=== PATIENT | female | born 1940 | race Caucasian/White ===

== ENCOUNTER → 2016-11-16 | Outpatient (CLI) | payer MEDICARE, BC ==
[~2016-11-16] MED LIST: ADVAIR 250/5028 PUFF IN; AMLO5TAB PO; CARAFATE 1GM TAB1 GM PO; CHEWABLE ASPIRI81 MG PO; DOS PO; KONSYL PO; LANSOPRAZOLE30 MG PO; LOPRESSOR 25MG.25 MG PO; LOSARTAN POTASS50 MG PO; MIRALAX17 GM/PACK PO; PLAVIX75 MG PO; PREVACID 30MG C30 M1 OR; PROTONIX 40MG T40 MG PO; RESTORIL 15MG C15 MG PO; SIMVASTATIN20 MG PO; VENTOLIN H0.09 MG/AC IH; VENTOLIN H0.09 MG/Ac IH; ZOLPIDEM 10MG T10 MG PO
[2016-11-16 14:30] LABS: HEMOGLOBIN 12.7 g/dL (12.2-16.2); LYMPH # 0.9 K/mm3 (0.7-4.5); LYMPH % 21.7 % (10-50.0)
[2016-11-16 15:42] LABS: BUN 9 mg/dL (7-18)
[2016-11-16 15:43] LABS: GFR (ESTIMATED) 81 ML/MIN (59-)
[2016-11-17 08:43] LABS: Vitamin B12 495 pg/mL (211-946)
[2016-11-20 03:37] LABS: 1,25-Dihydroxy, Vitamin D-2 <10 pg/mL (.); 1,25-Dihydroxy, Vitamin D-3 21 pg/mL (.); Total 1,25-Dihydroxy,Vitamin D 21 pg/mL (.)
== END ==
LOC: CARL-LAB 07:07
PROVIDERS: Internal Medicine Adolescent Medicine
DX: E78.5 Hyperlipidemia, unspecified (principal); Z86.2 Personal history of diseases of the blood and blood-forming organs and certain disorders involving the immune mechanism; Z78.0 Asymptomatic menopausal state; F51.01 Primary insomnia

== ENCOUNTER 2017-01-02 12:26 | Day surgery (SDC) | payer MEDICARE, BC ==
--- NOTE | 2017-01-02 13:39 | Operative Note ---
Upper GI Endoscopy Procedure date: 01/02/17 Date of : 40 Procedure:Upper GI Endoscopy Esophagogastroduodenoscopy with cold biopsies and TTS balloon dilation Indications: Mrs. De Anda is a 76-year-old female who reports marked fullness and early satiety. At nighttime she will feel gas bubbles coming into her mouth emanating from the esophagus. The patient has lost 16 pounds. She does have some occasional RIGHT upper quadrant pain. She states that she has a history of a hiatal hernia. She reports no nausea or epigastric pain or true dysphagia but does have some globus sensation. She does have chronic constipation and has been on MiraLAX twice a day. 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 She did have ERCP with me in November 2010. She also had an ERCP in July 2001. Her last colonoscopy was January 2010. She had some mild left-sided diverticulosis and increased anal sphincter tone with a prior healed fissure. She had a diminutive polyp removed that was hyperplastic. Performing Provider: Ross Downs MD Referring Provider: Kevin Brian M.D. Sedation: Fentanyl 100 mg IV/Versed 5 mg IV Procedure: Prior to the procedure, a history and physical exam was performed, and patients medications and allergies were reviewed. The risks and benefits of the procedure and the sedation options and risks were discussed with the patient. All questions were answered and informed consent was obtained. The patient was brought to the procedure room. Patient identification and proposed procedure were verified by the physician and the nurse. The patient was placed in a left lateral decubitus position and the scope was passed under direct vision. Throughout the procedure, the patient's blood pressure, pulse, and oxygen saturations were monitored continuously. The endoscope was introduced through the mouth, and advanced to the second part of duodenum. The upper GI endoscopy was accomplished without difficulty. The patient tolerated the procedure well. Findings: The scope was passed directly into the upper esophagus and advanced to the third portion of the duodenum. The post bulbar duodenum and duodenal bulb were normal with normal mucosa and conniventes. There was some bile staining in the duodenum. The scope was withdrawn through a normal duodenal bulb and pylorus into the stomach. There was moderate to marked bowel reflux was moderate linear reactive gastritis of the antrum and body of the stomach. Cold biopsies were obtained. The remainder of the antrum, body and fundus of the stomach were grossly normal. Upon retroflexion there was no hiatal hernia. There was a gastric polyp in the cardia region of the stomach removed via cold biopsy. The scope was then withdrawn into the esophagus. There was no evidence of reflux esophagitis, Blackmon's or Schatzki's ring. There was evidence of tertiary contractions and mild esophageal dysmotility. The entire esophagus was dilated to 60 Armenian/20 mm with a TTS hydrostatic balloon. There was some resistance at the cricopharyngeus/upper esophageal sphincter. The remainder of the esophageal mucosa was normal. Immediate complications: None EBL (ml): 0 Impression: 1. Nonerosive gastroesophageal reflux disease with mild esophageal dysmotility and increased cricopharyngeal resting tone 2. Bile reflux with linear reactive gastritis 3. 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 I do feel that the patient has fullness secondary to obstipation. I would recommend adding Citrucel to each dose of MiraLAX and consider adding promotility therapy. at [id number]
[2017-01-02 15:47] VITALS: BP 164/88
== END 2017-01-02 15:05 | disposition home or self-care (01) ==
LOC: SDC 12:26
PROVIDERS: Internal Medicine Gastroenterology
PROC: 0D758ZZ Dilation of Esophagus, Via Natural or Artificial Opening Endoscopic (ICD-10-PCS; 2017-01-02)
PROC: 0DB68ZX Excision of Stomach, Via Natural or Artificial Opening Endoscopic, Diagnostic (ICD-10-PCS; principal; 2017-01-02 13:00)
DX: K21.9 Gastro-esophageal reflux disease without esophagitis (principal); K22.4 Dyskinesia of esophagus; K29.60 Other gastritis without bleeding; K31.7 Polyp of stomach and duodenum
CPT/HCPCS: C1726

== ENCOUNTER 2017-04-24 12:21 | Day surgery (SDC) | payer MEDICARE, BC ==
--- NOTE | 2017-04-24 14:10 | Operative Note ---
Colonoscopy ([facility]) Procedure date: 04/24/17 Date of : 40 Procedure:Colonoscopy Colonoscopy Indications: Mrs. De Anda is a 76-year-old female who is here for follow-up screening/ surveillance colonoscopy. She did have a colonoscopy in 2009 it was time a benign polyp was removed. She did have some progressive weight loss which has stabilized. She continues to have some reflux with gas bubbles into her throat but this has significantly improved. She has taken MiraLAX plus Citrucel (fiber bowel regimen) for her chronic constipation. She reports no rectal bleeding, abdominal pain, change in bowel habits or any further weight loss. She reports no family history of colon cancer. Performing Provider: Ross Downs MD Referrring Provider: Kevin Brian M.D. Sedation: Fentanyl 150 mg IV/Versed 7 mg IV Procedure: Prior to the procedure, a history and physical exam was performed, and patient medications and allergies were reviewed. The risks and benefits of the procedure and the sedation options and risks were discussed with the patient. All questions were answered and informed consent was obtained. Patient identification and proposed procedure were verified by the physician and the nurse. The patient was placed in a left lateral decubitus position. Throughout the procedure, the patient's blood pressure, pulse, and oxygen saturations were monitored continuously. Findings: On digital rectal examination there was normal rectal tone. There were no external hemorrhoids. The colonoscope was introduced through the anal canal to the rectum and advanced to the cecum. The ileocecal valve and appendiceal orifice were identified. The scope was advanced a short distance into the ileum which appeared grossly normal. The scope was then withdrawn into the colon. The cecum, ascending, transverse, descending, sigmoid and rectum were grossly normal. There were no mucosal abnormalities identified. There was some colonic tortuosity. Upon retroflexion within the rectum there were grade 1 internal hemorrhoids. Impressions: 1. Normal colonoscopy with intubation of the terminal ileum 2. Grade 1 internal hemorrhoids Recommendations: I am not convinced that she will require any further screening/surveillance colonoscopy for preventive measures. I would continue a fiber bowel regimen on a long-term daily maintenance basis. Complications: None EBL (ml): 0 at 1410
[2017-04-24 16:15] VITALS: BP 157/79
== END 2017-04-24 15:30 | disposition home or self-care (01) ==
LOC: SDC 12:21
PROVIDERS: Internal Medicine Gastroenterology
PROC: 0DJD8ZZ Inspection of Lower Intestinal Tract, Via Natural or Artificial Opening Endoscopic (ICD-10-PCS; principal; 2017-04-24 13:30)
DX: Z12.11 Encounter for screening for malignant neoplasm of colon (principal); Z87.19 Personal history of other diseases of the digestive system; K64.8 Other hemorrhoids; Z79.82 Long term (current) use of aspirin; Z79.899 Other long term (current) drug therapy